=== PATIENT | male | born 1980 | race Caucasian/White ===

== ENCOUNTER → 2018-02-06 | Outpatient (CLI) | payer BC, OTHER | LOC: MRI 12:21 | DX: M51.36 Other intervertebral disc degeneration, lumbar region (principal); M51.37 Other intervertebral disc degeneration, lumbosacral region; M51.27 Other intervertebral disc displacement, lumbosacral region; M12.88 Other specific arthropathies, not elsewhere classified, other specified site; M48.07 Spinal stenosis, lumbosacral region; M48.061 Spinal stenosis, lumbar region without neurogenic claudication ==

== ENCOUNTER → 2018-02-19 | Outpatient (CLI) | payer BC, OTHER ==
[~2018-02-19] VITALS: Ht 175.3 cm; Wt 74.8 kg
[~2018-02-19] MED LIST: NABUMETONE 500500 M1 PO; PROZAC20 MG PO; TRAZODONE HCL100 MG PO
--- NOTE | ~2018-02-19 | HPC ---
[facility] [address] PAIN MANAGEMENT CONSULTATION Name: ESTEE GONZALEZ II [facility] #: [facility] [id number] Admission: 02/19/18 Attend Phys: Eboni Flynn MD Discharge: Date of : 82 Report #: [id number] THIS REPORT FOR: //name// CC: Eboni Cancino DATE OF SERVICE: 02/19/2018 FOLLOWUP COMPLAINT: Pain and discomfort down into the low back and left hip for about 2 months. FOLLOWUP HISTORY: The patient is a 37-year-old gentleman, who has been referred to the pain clinic for evaluation. The patient states that he is having pain and discomfort in the lower portion of his back. Pain is radiating down into his right buttocks, leg, and back. He notes onset of this discomfort in about 11/2017. He rates it as a 5/10 at this point. Pain is worsened and exacerbated by activity such as driving, twisting, lifting, and other activities of daily living. He denies any similar pain or problems like this in the past. He denies any bowel or bladder dysfunction. He is not taking any opioid medications on a regular basis. He has been told that he has bulging disks after an MRI. He has come to the pain clinic for evaluation and treatment. PAST MEDICAL HISTORY: Emotional problems. PAST SURGICAL HISTORY: Deviated septum in 02/2017 and ACL repair in 2004. CURRENT MEDICATIONS: Paroxetine 20 mg, trazodone 100 mg at bedtime for insomnia, and ____ 500 mg b.i.d. ALLERGIES: No known drug allergies. SOCIAL HISTORY: He is a computer hardware developer. He is working at this juncture. REVIEW OF SYSTEMS: Questionnaire in the chart, generally good health, hearing loss/ringing in the ears, depression, otherwise unremarkable. PAIN CLINIC ASSESSMENT: 1. History of osteoarthritis. The patient is not being treated for osteoarthritis or rheumatoid arthritis. 2. Pain intensity is 5/10. 3. Fall risk. The patient has fallen and did fall on his right hip. 4. Blood thinner. The patient is not on a blood thinning medication. 5. History of hypertension. The patient is not being treated for hypertension. 6. Opiate therapy greater than 6 weeks. The patient is not on an opioid therapy. 7. Risk assessment tool. The patient has a low [place] [address] PAIN MANAGEMENT CONSULTATION Name: ESTEE GONZALEZ II Room #: REG CL Nakita#: [id number] Admission: 02/19/18 Attend Phys: Eboni Flynn MD Discharge: Date of : 82 Report #: [id number] 8. Functional assessment tool. The patient has a [id number]-bg-[id number] amount of pain and discomfort secondary to the pain that he is experiencing. 9. Recreational drug use. The patient has never used drugs recreationally. 10. Tobacco: The patient denies use of tobacco. 11. Alcohol. The patient drinks about 3-4 alcoholic beverages weekly. PHYSICAL EXAMINATION: GENERAL: The patient is a well-developed white male. He appears his stated age. He is alert and oriented x 3. Speech is fluent. Height is 5 feet 9 inches, weight 165 pounds, and BMI is 24. VITAL SIGNS: Blood pressure is 114/77, pulse is 77, respiratory rate is 14, and room air saturation is 100%. HEENT: Normocephalic, atraumatic. Extraocular eye muscles intact. The patient has ____ blinking, right side to the left. Sclerae nonicteric. Mucous membranes are moist. NECK: Without adenopathy or JVD. Good range of motion. HEART: Regular rate. S1, S2. LUNGS: Clear to auscultation without crackles or rales. ABDOMEN: Nontender. MUSCULOSKELETAL: Without scoliosis, kyphosis, or lordosis. Upper extremity muscle strength is judged to be 5/5 with a positive +2 biceps reflex. Left and right trace brachioradialis reflexes. Left and right triceps response absent. Lower extremity muscle strength is judged to be 5/5 for the major muscle groups in the lower extremity. Deep tendon reflexes are +2 for the patella as well as the ankle reflexes. Florencio's sign was negative. Anterior, posterior spring testing are negative. The muscles in the lower extremity are symmetrical. Positive straight leg raise regarding the left leg with L5-S1 nerve root irritation. LABORATORY DATA: MRI of the lumbar spine dated 02/06/2018: 1. L3-L4: There is generalized disk bulge and mild bilateral facet arthropathy. There is mild central canal stenosis. There is no neuroforaminal stenosis. 2. L4-L5: There is a generalized disk bulge, which is asymmetric to the left and mild bilateral facet arthropathy and ligamentum flavum hypertrophy. There is moderate central canal stenosis and mild bilateral neuroforaminal stenosis. 3. L5-S1: There is a generalized disk bulge with a superimposed right paracentral disk protrusion. This disk protrusion abuts the right S1 nerve root in the central canal. This along with mild bilateral facet arthropathy and ligamentum flavum hypertrophy contribute to moderate central canal stenosis and mild bilateral neuroforaminal stenosis. IMPRESSION: 1. L5-S1 nerve root irritation with radiculopathy. 2. Depression. [place] [id number] PAIN MANAGEMENT CONSULTATION Name: ESTEE GONZALEZ II Room #: REG [facility]#: [id number] Admission: 02/19/18 Attend Phys: Eboni Flynn MD Discharge: Date of : 82 Report #: [id number] RECOMMENDATIONS: We have discussed treatment options with the patient. Risks and benefits of an epidural steroid injection were discussed. A model was used to indicate the area of probable pathology. We reviewed the patient's MRI with him. He saw the image and states that he understands. He would like to proceed with an epidural steroid injection. The patient will return to the pain clinic at which time he will then undergo an epidural steroid injection. Risks and benefits of the procedure, which could include but are not limited to infection, increased muscle soreness, headache, bleeding, worsening of pain, and paralysis were discussed. The patient elects to proceed. He will return in the near future for treatment. We would like to thank you for letting us to participate in his care. We hope he continues to improve. By: [id number] Eboni Flynn MD /CJ
[2018-02-19 11:20] VITALS: BP 114/77
== END ==
LOC: PAIN 07:08
DX: M54.17 Radiculopathy, lumbosacral region (principal); F32.9 Major depressive disorder, single episode, unspecified

== ENCOUNTER → 2018-02-21 | Outpatient (CLI) | payer BC, OTHER ==
[~2018-02-21] VITALS: Ht 175.3 cm; Wt 74.8 kg
--- NOTE | ~2018-02-21 | HPC ---
[facility] [place] [address] PAIN MANAGEMENT CONSULTATION Name: CARLOSESTEE AMANDA TORRES Room #: REG [facility] [id number] Admission: 02/21/18 Attend Phys: Eboni Flynn MD Discharge: Date of : 82 Report #: [id number] THIS REPORT FOR: //name// CC: Eboni Cancino MD DATE OF SERVICE: 02/21/2018 FOLLOWUP COMPLAINT: Pain in the low back with pain radiating down into the left hip for 2 months. FOLLOWUP HISTORY: The patient is a 37-year-old gentleman who has been referred to the Pain Clinic for evaluation. The patient states he has been having pain and discomfort, which radiates down into his low back into his leg. The pain involves his right buttocks. He rates it as a 5/10 at this juncture. He first noted onset of this pain in November 2017. Notes that the pain is problematic with activities of daily living such as driving, twisting, lifting, and affects his ability to rest. He denies any bowel or bladder dysfunction. He is not taking any opioid medications on a regular basis. He did have an MRI, which shows a bulging disk in the L5-S1 area. He has returned today to the Pain Clinic for injection and treatment. ALLERGIES: No known drug allergies. CURRENT MEDICATIONS: Paroxetine 20 mg tablet, trazodone 100 mg at bedtime for insomnia, nabumetone 500 mg b.i.d. PAIN CLINIC ASSESSMENT: 1. History of osteoarthritis: The patient is not being treated for osteoarthritis or rheumatoid arthritis. 2. Pain intensity: 4/10. 3. Height 5 feet 9 inches, weight 165 pounds, BMI is 24. 4. Vital signs: Blood pressure 123/86, pulse 80, respiratory rate 14, room air saturation is 100%. 5. Blood thinner: The patient is not on a blood thinning medication. 6. History of hypertension: The patient is not being treated for hypertension. 7. Opioid therapy greater than 6 weeks: The patient is not on opioid therapy. 8. Risk assessment tool: Low for opioid use rate. 9. Functional assessment tool: , mild to moderate problems with pain secondary to his discomfort. 10. Recreational drug use: The patient denies use of recreational drugs. 11. Tobacco: The patient has never used tobacco. 12. Alcohol: The patient does use alcoholic beverages on occasion. PHYSICAL EXAMINATION: [facility] [address] [place] [address] PAIN MANAGEMENT CONSULTATION Name: MARY BETHESTEE TEMPLE II [id number] Admission: 02/21/18 Attend Phys: Eboni Flynn MD Discharge: Date of : 82 Report #: [id number] GENERAL: The patient is a well-developed, well-nourished white male. He appears his stated age. He is alert and oriented x 3. His speech is fluent. Height 5 feet 9 inches. HEENT: Normocephalic, atraumatic. Extraocular eye muscles are intact. The patient exhibits separate blinking for left and right eye, not often in unison. Sclerae nonicteric. Mucous membranes are moist. NECK: Without adenopathy or JVD. Good range of motion in the neck. HEART: Regular rate. S1, S2. LUNGS: Clear to auscultation without crackles or rales. ABDOMEN: Nontender. MUSCULOSKELETAL: Without scoliosis, kyphosis or lordosis. Upper extremity muscle strength is judged to be 5/5 for the major muscle groups. Positive +2 biceps reflex. Validation Architect strength is 5/5. Lower muscle strength is judged to be 5/5. Positive patellar reflexes. Positive ankle reflexes. Florencio's sign is negative. Anterior and posterior spring test is negative. The patient has pain radiating down into the left L5-S1 dermatomal distribution. IMPRESSION: 1. L5-S1 nerve root irritation with radiculopathy on the left. 2. History of depression. RECOMMENDATIONS: We discussed treatment options with the patient. Risks and benefits of an epidural steroid injection were again reviewed. Possible complications were discussed. They include but are not limited to infection, increased muscle soreness, headaches, worsening of pain, no improvement in pain, nerve damage. The patient elects to proceed. PROCEDURE NOTE: The patient was placed in the prone position. Fluoroscopy was used to identify the L5-S1 area using fluoroscopy. The left central area was noted. A 25-gauge needle was then advanced into the area with infiltration of 0.25% bupivacaine. A total of 80 mg Depo-Medrol, 40 mg triamcinolone, and 2 mL of 0.25% bupivacaine was injected. The patient tolerated the procedure well. There were no complications. The patient's pain decreased. He will follow up in the near future. We would like to thank you for letting us participate in his care. We hope he continues to improve. By: [id number] Eboni Flynn MD /tulio
[2018-02-21 08:03] VITALS: BP 123/86
== END | disposition home or self-care (01) ==
LOC: PAIN 06:58
DX: M54.16 Radiculopathy, lumbar region (principal); G89.29 Other chronic pain; Z86.59 Personal history of other mental and behavioral disorders; Z79.899 Other long term (current) drug therapy

== ENCOUNTER → 2018-03-28 | Outpatient (CLI) | payer BC, OTHER ==
[~2018-03-28] VITALS: Ht 175.3 cm; Wt 77.1 kg
[~2018-03-28] MED LIST changes: +NEURONTIN 300300 M1 PO
--- NOTE | ~2018-03-28 | HPC ---
[facility] [address] [place] [address] PAIN MANAGEMENT CONSULTATION Name: ESTEE GONZALEZ II Room #: REG [facility]#: [id number] Admission: 03/28/18 Attend Phys: Eboni Flynn MD Discharge: Date of : 82 Report #: [id number] THIS REPORT FOR: //name// CC: Eboni Cancino DATE OF SERVICE: 04/02/2018 FOLLOWUP HISTORY: The patient is a 37-year-old gentleman who has been seen in the Pain Clinic because of lumbar radiculopathy. He has been experiencing pain in his low back that radiates down into his buttocks and down into his left leg. It involves his foot. He has noted the pain, which has been problematic since about November of this year. Continues to have some burning, sharp discomfort. Notes that the pain is worse when he is driving, twisting, lifting. Rates the pain as a 5/10. He has not had surgery. For this problem. ALLERGIES: No known drug allergies. CURRENT MEDICATIONS: Paroxetine 20 mg, trazodone 100 mg at bedtime for insomnia, nabumetone 500 mg b.i.d. PAIN CLINIC ASSESSMENT: 1. The patient is not being treated for osteoarthritis or rheumatoid arthritis. 2. Height 5 feet 9 inches, weight 170 pounds, BMI 25. 3. Vital signs: Blood pressure 118/80, pulse 80, respiratory rate 14, room air saturation 98%. Pain intensity 5/10. 4. Fall history: The patient has not fallen in the last 2 months. 5. Blood thinner. The patient is not on a blood thinning medication. 6. History of hypertension. The patient is not being treated for hypertension. 7. Opioid therapy. The patient is not on an opioid contract. 8. Risk assessment: 08/28 low risk. 9. Functional assessment: . 10. Recreational drug use. The patient denies use of recreational drugs. 11. Tobacco: The patient denies use of tobacco. 12. Alcohol. The patient drinks about one alcoholic beverage daily. PHYSICAL EXAMINATION: GENERAL: The patient is a well-developed, well-nourished white male. Appears his stated age. He is alert and oriented x 3. His speech is fluent. HEENT: Normocephalic, atraumatic. Extraocular eye muscles intact. Hearing is within normal limits. Mucous membranes are moist. NECK: Without adenopathy or JVD. Good range of motion in his neck. HEART: Regular rate. S1, S2. LUNGS: Clear to auscultation without crackles or rales. ABDOMEN: Nontender. MUSCULOSKELETAL: Without scoliosis, kyphosis or lordosis. Upper extremity [address] [address] PAIN MANAGEMENT CONSULTATION Name: ESTEE GONZALEZ II Room #: REG [facility] Nakita#: [id number] Admission: 03/28/18 Attend Phys: Eboni Flynn MD Discharge: Date of : 82 Report #: [id number] muscle strength is judged to be 5/5 for the major muscle groups. Positive +2 biceps, reflexes 5+/5. Shipping/Receiving Manager strength lower extremity judged to be 5/5 strength. Positive patellar reflexes. Florencio's sign is negative. Anterior and posterior spring tests are negative. The patient does have some pain and discomfort, which is radiating down the L5-S1 dermatomal distribution. IMPRESSION: 1. L5-S1 nerve root irritation with radiculopathy on the left side. 2. History of depression. RECOMMENDATIONS: We discussed treatment options with the patient. At this juncture, he would like to continue with a more conservative approach. The patient will undergo physical therapy. A script for this treatment course has been written. He will go for 3 times a week and return to the Pain Clinic should his pain continue to be problematic. We would like to thank you for letting us participate in his care. We hope he continues to improve. By: [id number] Eboni Flynn MD /nt
[2018-03-28 08:14] VITALS: BP 118/80
== END ==
LOC: PAIN 07:01
DX: M54.16 Radiculopathy, lumbar region (principal); Z79.899 Other long term (current) drug therapy